=== PATIENT | male | born 1960 | race American Indian/Alaskan Native ===

== ENCOUNTER 2021-05-15 15:54 | Emergency (ER) | payer OTHER ==
[2021-05-15] MEDS ORDERED: IBUPROFEN 600 MG TAB PO ONE (17:36)
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
[2021-05-15 19:28] VITALS: BP 162/85
--- NOTE | 2021-05-15 19:59 | XRay Report ---
Lumbar spine 3 views INDICATION: Low back pain following injury IMPRESSION: No fracture or subluxation is identified. Moderate multilevel discogenic and facet arthro shiv of the lumbar spine likely at L4-L5 and L5-S1. Signer Name: Zuhair Laboy MD Signed: 05/15/2021 7:55 PM Workstation Name: [id number]
--- NOTE | 2021-05-15 20:00 | XRay Report ---
Cervical spine 4 views INDICATION: Neck pain following injury IMPRESSION: Mild multilevel discogenic and uncovertebral arthropathy. No fracture or subluxation is i dentified. There is mild atherosclerotic disease involving both carotid arteries. Signer Name: Zuhair Laboy MD Signed: 05/15/2021 7:55 PM Workstation Name: [id number]
== END 2021-05-15 20:16 | disposition home or self-care (01) ==
LOC: ED 15:54
DX: S16.1XXA Strain of muscle, fascia and tendon at neck level, initial encounter (principal); S39.012A Strain of muscle, fascia and tendon of lower back, initial encounter; M51.36 Other intervertebral disc degeneration, lumbar region; M50.30 Other cervical disc degeneration, unspecified cervical region; Z88.6 Allergy status to analgesic agent; I10 Essential (primary) hypertension; F10.20 Alcohol dependence, uncomplicated; F17.200 Nicotine dependence, unspecified, uncomplicated; V49.88XA Car occupant (driver) (passenger) injured in other specified transport accidents, initial encounter; Y93.89 Activity, other specified; Y92.89 Other specified places as the place of occurrence of the external cause; Y99.8 Other external cause status
CPT/HCPCS: 72040; 72100; 99283